=== PATIENT | female | born 1985 | race Hispanic/Latino ===

== ENCOUNTER 2018-04-11 00:59 | Emergency (ER) | payer SELFPAY ==
[2018-04-11] MEDS ORDERED: Zofran 4 MG/2 ML VIAL IV ONE (01:25)
[2018-04-11] MEDS ORDERED: Sodium Chloride 0.9% 1000 ML 1,000 ML IV STA (01:25)
[2018-04-11] MEDS ORDERED: TORAdol 30 mg Injection IV ONE (01:25)
--- NOTE | 2018-04-11 01:31 | ERPHSYRPT ---
- History of Present Illness Time Seen by Provider: 04/11/18 01:26 Historian: patient Exam Limitations: no limitations Physician History: This is a 33-year-old female arrives with complaint of pain in her left flank radiating to her left groin described as sharp severe intermittent symptoms going on since 10:00 yesterday morning she states she's been nauseous she denies any vomiting she states she has had some nausea he denies dysuria she does have pink urine patient states the pain is similar to kidney stones she has had in the past. Past medical history includes kidney stones Past surgical history is remarkable for appendectomy gallbladder. Social history patient denies alcohol or illicit drug or tobacco use. Timing/Duration: today Activities at Onset: none Quality: sharpness Abdominal Pain Onset Location: flank (left flank) Pain Radiation: groin (left groin) Severity of Pain-Max: moderate Severity of Pain-Current: moderate Modifying Factors: Improves With: nothing Associated Symptoms: back (left flank pain), nausea, No chest pain, No diaphoresis, No diarrhea, No fever/chills, No fatigue, No headache, No heartburn , No loss of appetite, No neck pain, No rash, No shortness of breath, No syncope , No vomiting, No weakness Previous symptoms: same symptoms as today (same symptoms with kidney stones in the past.) Allergies/Adverse Reactions: tramadol Allergy (Severe, Verified 04/11/18 01:15) - Review of Systems Constitutional: No Fever, No Chills Eyes: No Symptoms Ears, Nose, & Throat: No Symptoms Respiratory: No Cough, No Dyspnea Cardiac: No Chest Pain, No Edema, No Syncope Abdominal/Gastrointestinal: Nausea, No Abdominal Pain, No Vomiting, No Diarrhea , No Constipation, No Hematemesis, No Hematochezia, No Melena, No Dysphagia, No Appetite Changes Genitourinary Symptoms: Flank Pain (left flank pain), Other (patient with pink urine), No Dysuria, No Frequency, No Hematuria, No Hesitancy, No Incontinence, No Urgency, No Urinary Retention, No Menorrhagia, No , No Vaginal Bleeding, No Vaginal Discharge, No Vaginal Itching Musculoskeletal: No Back Pain (left flank pain), No Neck Pain, No Deformity, No Fall, No Injury, No Joint Redness, No Joint Swelling, No Myalgias Skin: No Rash Neurological: No Dizziness, No Focal Weakness, No Sensory Changes Psychological: No Symptoms Endocrine: No Symptoms All Other Systems: Reviewed and Negative - Past Medical History Pertinent Past Medical History: Yes History: Other (kidney stones) - Past Surgical History Past Surgical History: Yes Gastrointestinal: Appendectomy, Cholecystectomy - Nursing Vital Signs Nursing Vital Signs: Initial Vital Signs Temperature 98.3 F 04/11/18 01:00 Pulse Rate 99 H 04/11/18 01:00 Respiratory Rate 18 04/11/18 01:00 Blood Pressure 137/75 04/11/18 01:00 O2 Sat by Pulse Oximetry 96 04/11/18 01:00 Pain Scale Pain Intensity 10 - Physical Exam General Appearance: mild distress Eye Exam: PERRL/EOMI, eyes nml inspection, other (fundi are unremarkable) Ears, Nose, Throat Exam: normal ENT inspection, pharynx normal, moist mucous membranes Neck Exam: normal inspection, non-tender, supple, full range of motion Respiratory Exam: normal breath sounds, lungs clear, No respiratory distress Cardiovascular Exam: regular rate/rhythm, normal heart sounds, capillary refill <2 sec Gastrointestinal/Abdomen Exam: soft, No tenderness, No mass Back Exam: normal inspection, normal range of motion, No CVA tenderness, No vertebral tenderness Extremity Exam: normal inspection, normal range of motion, pelvis stable Neurologic Exam: alert, oriented x 3, cooperative, him analyst II-XII nml as tested, normal mood/affect, nml cerebellar function, sensation nml, No motor deficits Skin Exam: normal color, warm, dry SpO2 Interpretation: normal (96%) SpO2: 96 - Course Nursing assessment & vital signs reviewed: Yes - CT Exams Abdomen/Pelvis CT Interpretation: Tele-radiologist Report (CT abdomen and pelvis without contrast. Impression: No evidedence of acute intra-abdominal or pelvic pathology.) Ordered Tests: Active Orders 24 hr Category Date Time Status IV Insertion STAT Care 04/11/18 01:25 Active ABDOMEN AND PELVIS W/0 CONTRAS [CT] Stat Exams 04/11/18 02:19 Taken CBC W DIFF Stat Lab 04/11/18 02:25 Completed CMP Stat Lab 04/11/18 02:25 Completed CULTURE,URINE Stat Lab 04/11/18 01:45 Received HCG,QUALITATIVE URINE Stat Lab 04/11/18 01:45 Completed UA W/RFX UR CULTURE Stat Lab 04/11/18 01:45 Completed Medication Summary Discontinued Medications Generic Name Dose Route Start Last Admin Trade Name Ml PRN Reason Stop Dose Admin Sodium Chloride 1,000 mls @ 999 mls/hr 04/11/18 01:25 04/11/18 02:10 Sodium Chloride 0.9% 1000 Ml IV 04/11/18 02:25 Not Given .Q1H1M STA Sodium Chloride Confirm 04/11/18 01:42 Sodium Chloride 0.9% 1000 Ml Administered 04/11/18 01:43 Dose 1,000 mls @ ud .ROUTE .STK-MED ONE Ketorolac Tromethamine 30 mg 04/11/18 01:25 04/11/18 02:11 Toradol 30 Mg Injection IV 04/11/18 01:26 Not Given STAT ONE Ketorolac Tromethamine Confirm 04/11/18 01:42 Toradol 30 Mg Injection Administered 04/11/18 01:43 Dose 30 mg .ROUTE .STK-MED ONE Ketorolac Tromethamine 60 mg 04/11/18 02:07 04/11/18 02:11 Toradol 30 Mg Injection IM 04/11/18 02:08 60 mg STAT ONE Administration Ketorolac Tromethamine Confirm 04/11/18 02:08 Toradol 30 Mg Injection Administered 04/11/18 02:09 Dose 30 mg .ROUTE .STK-MED ONE Morphine Sulfate 4 mg 04/11/18 03:02 04/11/18 03:19 Morphine Sulfate 4 Mg Inj IV 04/11/18 03:03 Not Given STAT ONE Morphine Sulfate Confirm 04/11/18 03:05 Morphine Sulfate 4 Mg Inj Administered 04/11/18 03:06 Dose 4 mg .ROUTE .STK-MED ONE Morphine Sulfate 4 mg 04/11/18 03:18 04/11/18 03:08 Morphine Sulfate 4 Mg Inj IM 04/11/18 03:19 4 mg STAT ONE Administration Ondansetron HCl 4 mg 04/11/18 01:25 04/11/18 02:14 Zofran 4 Mg/2 Ml Vial IV 04/11/18 01:26 Not Given STAT ONE Ondansetron HCl Confirm 04/11/18 01:42 Zofran 4 Mg/2 Ml Vial Administered 04/11/18 01:43 Dose 4 mg .ROUTE .STK-MED ONE Ondansetron HCl 4 mg 04/11/18 02:17 04/11/18 02:18 Zofran Odt 4 Mg PO 04/11/18 02:18 4 mg STAT ONE Administration Ondansetron HCl Confirm 04/11/18 02:18 Zofran Odt 4 Mg Administered 04/11/18 02:19 Dose 4 mg .ROUTE .STK-MED ONE Lab/Rad Data: Laboratory Result Diagrams 04/11/18 02:25 04/11/18 02:25 Laboratory Results 04/11/18 04/11/18 04/11/18 Range/Units 02:25 02:25 01:45 WBC 4.5 (4.0-10.5) K/mm3 RBC 3.70 L (4.1-5.4) M/mm3 Hgb 10.0 L (12.0-16.0) gm/dl Hct 31.2 L (35-47) % MCV 84.3 (78-100) fl MCH 27.0 (26-32) pg MCHC 32.1 (32-36) g/dl RDW 14.3 H (11.5-14.0) % Plt Count 285 (150-450) K/mm3 MPV 10.1 H (6-9.5) fl Gran % 51.6 (36.0-66.0) % Eos # (Auto) 0.15 (0-0.5) Absolute Lymphs (auto) 1.64 (1.0-4.6) Absolute Monos (auto) 0.35 (0.0-1.3) Lymphocytes % 36.4 (24.0-44.0) % Monocytes % 7.8 (0.0-12.0) % Eosinophils % 3.3 (0.00-5.0) % Basophils % 0.9 (0.0-0.4) % Absolute Granulocytes 2.32 (1.4-6.9) Basophils # 0.04 (0-0.4) Sodium 140 (137-145) mmol/L Potassium 3.8 (3.5-5.1) mmol/L Chloride 107 (98-107) mmol/L Carbon Dioxide 26 (22-30) mmol/L Anion Gap 10.8 (5-15) MEQ/L BUN 14 (7-17) mg/dL Creatinine 0.62 (0.52-1.04) mg/dL Estimated GFR > 60.0 ML/MIN Glucose 94 (74-106) mg/dL Calcium 8.8 (8.4-10.2) mg/dL Total Bilirubin 0.50 (0.2-1.3) mg/dL AST 68 H (14-36) U/L ALT 79 H (0-35) U/L Alkaline Phosphatase 118 (38-126) U/L Serum Total Protein 7.3 (6.3-8.2) g/dL Albumin 4.0 (3.5-5.0) g/dL Urine Color (YELLOW) Urine Appearance (CLEAR) Urine pH (5-6) Ur Specific [place] (1.005-1.025) Urine Protein (Negative) Urine Ketones (NEGATIVE) Urine Blood (0-5) Amandeep/ul Urine Nitrite (NEGATIVE) Urine Bilirubin (NEGATIVE) Urine Urobilinogen (0-1) mg/dL Ur Leukocyte Esterase (NEGATIVE) Urine WBC (Auto) (0-5) /HPF Urine RBC (Auto) (0-2) /HPF U Epithel Cells (Auto) (FEW) /HPF Urine Bacteria (Auto) (NEGATIVE) /HPF Urine Culture Reflexed (NO) Urine Glucose (NEGATIVE) mg/dL Urine HCG, Qual NEGATIVE (Negative) 04/11/18 Range/Units 01:45 WBC (4.0-10.5) K/mm3 RBC (4.1-5.4) M/mm3 Hgb (12.0-16.0) gm/dl Hct (35-47) % MCV (78-100) fl MCH (26-32) pg MCHC (32-36) g/dl RDW (11.5-14.0) % Plt Count (150-450) K/mm3 MPV (6-9.5) fl Gran % (36.0-66.0) % Eos # (Auto) (0-0.5) Absolute Lymphs (auto) (1.0-4.6) Absolute Monos (auto) (0.0-1.3) Lymphocytes % (24.0-44.0) % Monocytes % (0.0-12.0) % Eosinophils % (0.00-5.0) % Basophils % (0.0-0.4) % Absolute Granulocytes (1.4-6.9) Basophils # (0-0.4) Sodium (137-145) mmol/L Potassium (3.5-5.1) mmol/L Chloride (98-107) mmol/L Carbon Dioxide (22-30) mmol/L Anion Gap (5-15) MEQ/L BUN (7-17) mg/dL Creatinine (0.52-1.04) mg/dL Estimated GFR ML/MIN Glucose (74-106) mg/dL Calcium (8.4-10.2) mg/dL Total Bilirubin (0.2-1.3) mg/dL AST (14-36) U/L ALT (0-35) U/L Alkaline Phosphatase (38-126) U/L Serum Total Protein (6.3-8.2) g/dL Albumin (3.5-5.0) g/dL Urine Color PINK (YELLOW) Urine Appearance CLEAR (CLEAR) Urine pH 9.0 (5-6) Ur Specific [place] 1.000 (1.005-1.025) Urine Protein 30 (Negative) Urine Ketones NEGATIVE (NEGATIVE) Urine Blood LARGE (0-5) Amandeep/ul Urine Nitrite NEGATIVE (NEGATIVE) Urine Bilirubin NEGATIVE (NEGATIVE) Urine Urobilinogen NEGATIVE (0-1) mg/dL Ur Leukocyte Esterase NEGATIVE (NEGATIVE) Urine WBC (Auto) NONE (0-5) /HPF Urine RBC (Auto) 3-5 (0-2) /HPF U Epithel Cells (Auto) NONE (FEW) /HPF Urine Bacteria (Auto) NONE (NEGATIVE) /HPF Urine Culture Reflexed YES (NO) Urine Glucose NEGATIVE (NEGATIVE) mg/dL Urine HCG, Qual (Negative) - Progress Progress: improved Progress Note: 04/11/18 03:30 Patient with the essentially normal chemistry with the exception of an AST of 68 and an ALT of 79, electrolytes BUN and creatinine are normal patient with the urine that is pink 3-5 red cells, specific gravity 1.000. Patient's CBC white blood cell 4.5 hemoglobin 10.0 hematocrit 31.[address] abdomen and pelvis without contrast no evidence of acute intra-abdominal or pelvic pathology. Patient with no improvement with Toradol. Improved after receiving morphine. IV fluids not given patient very difficult stick and she has normal renal functions and normal electrolytes and no evidence of kidney stone. Will give patient a small amount of Stuart for pain Zofran. She is to follow-up with her family doctor (list) . - Departure Time of Disposition: 03:33 Departure Disposition: Home Clinical Impression: Left flank pain Hematuria Qualifiers: Hematuria type: unspecified type Qualified Code(s): R31.9 - Hematuria, unspecified Condition: Fair Critical Care Time: No Referrals: DOCTOR,NO FAMILY [Primary Care Provider] - Instructions: Flank Pain Additional Instructions: Return home. Plenty of fluids. Stuart as prescribed. Follow-up with your family doctor (list). Return for acute distress or for severe symptoms. Prescriptions: Hydrocodone/APAP 5-325 Tab^^^ [Stuart 5-325 Tablet^^^] 1 tab PO Q4HPRN PRN #10 tablet MDD 6 PRN Reason: Pain
[2018-04-11] MEDS ORDERED: TORAdol 30 mg Injection ONE ×2 (01:42→02:08)
[2018-04-11] MEDS ORDERED: Zofran 4 MG/2 ML VIAL ONE (01:42)
[2018-04-11] MEDS ORDERED: Sodium Chloride 0.9% 1000 ML 0 ML ONE (01:42)
[2018-04-11] MEDS ORDERED: TORAdol 30 mg Injection IM ONE (02:07)
[2018-04-11 02:15] LABS: Appearance CLEAR (CLEAR); Bilirubin NEGATIVE (NEGATIVE); Blood LARGE Ery/ul (0-5); Glucose NEGATIVE (NEGATIVE); Ketones NEGATIVE (NEGATIVE); Leukocyte Esterase NEGATIVE (NEGATIVE); Nitrite NEGATIVE (NEGATIVE); Protein,Urine Dip 30 (Negative); Urobilinogen NEGATIVE mg/dL (0-1)
[2018-04-11] MEDS ORDERED: ZOFRAN ODT 4 MG PO ONE (02:17)
[2018-04-11] MEDS ORDERED: ZOFRAN ODT 4 MG ONE (02:18)
[2018-04-11 02:30] LABS: BASOPHIL % 0.9 % (0.0-0.4); Basophil (Absolute #) 0.04 (0-0.4); Eosinophil % 3.3 % (0.00-5.0); Eosinophil (Absolute #) 0.15 (0-0.5); Granulocyte Absolute (ANC) 2.32 (1.4-6.9); Granulocytes % 51.6 % (36.0-66.0); Hematocrit 31.2 % (35-47); Lymphocyte (Absolute #) 1.64 (1.0-4.6); Lymphocytes % 36.4 % (24.0-44.0); Mean Cell Volume 84.3 fl (78-100); Mean Corpuscular Hgb Concent. 32.1 g/dl (32-36); Mean Platelet Volume 10.1 fl (6-9.5); Monocyte (Absolute #) 0.35 (0.0-1.3); Monocytes % 7.8 % (0.0-12.0); Platelet Count 285 K/mm3 (150-450); Red Cell Distribution Width 14.3 % (11.5-14.0); White Blood Count 4.5 K/mm3 (4.0-10.5)
[2018-04-11 02:40] LABS: ALKALINE PHOSPHATASE 118 U/L (38-126); ANION GAP 10.8 MEQ/L (5-15); BLOOD UREA NITROGEN 14 mg/dL (7-17); CHLORIDE 107 mmol/L (98-107); Calcium 8.8 mg/dL (8.4-10.2); Carbon Dioxide 26 mmol/L (22-30); Creatinine 1 0.62 mg/dL (0.52-1.04); Glucose 94 mg/dL (74-106); Potassium 3.8 mmol/L (3.5-5.1); SGOT/AST 68 U/L (14-36); SGPT/ALT 79 U/L (0-35); SODIUM 140 mmol/L (137-145); Total Protein 7.3 g/dL (6.3-8.2)
[2018-04-11] MEDS ORDERED: MORPHINE SULFATE 4 MG INJ ONE (03:05)
[2018-04-11 03:08] VITALS: BP 126/67; PULSE 91
[2018-04-11] MEDS: MORPHINE SULFATE 4 MG INJ IV ONE ×2 (03:08→03:19)
[2018-04-11] MEDS ORDERED: MORPHINE SULFATE 4 MG INJ IM ONE (03:18)
[2018-04-11 03:28] VITALS: O2SAT 96
[2018-04-11] MEDS ORDERED: NORCO 5/325 MG PO ONE (03:38)
[2018-04-11] MEDS ORDERED: NORCO 5/325 MG ONE (03:42)
--- NOTE | 2018-04-11 08:42 | XRAY ---
Indication: Left flank/pelvic pain. Nausea and hematuria. History renal stones. Multiple contiguous axial images obtained through the abdomen and pelvis without contrast using renal stone protocol. Comparison: None Lung bases are clear. Heart is not enlarged. No renal calculus or evidence for obstructive uropathy in either system. 1.9 cm left ovary cyst. No free fluid/air. Noncontrasted stomach and bowel loops appear nonobstructed. Previous appendectomy and cholecystectomy. There is mild diffuse scattered colonic fecal debris throughout. Remaining liver, pancreas, spleen, adrenal glands, kidneys, ureters, bladder, uterus, and aorta appear unremarkable for noncontrast exam. Osseous structures intact. Impression: 1. Negative renal calculus or evidence for obstructive uropathy. 2. 1.9 cm left ovary cyst. 3. Fecal stasis without obstruction. 4. Remaining CT abdomen/pelvis without contrast exam is negative. Comment: Preliminary interpretation was made by [facility]. No critical discrepancy. CT DI 23.45
== END 2018-04-11 03:57 | disposition home or self-care (01) ==
LOC: ED 00:59
DX: R31.9 Hematuria, unspecified (principal); R10.9 Unspecified abdominal pain
CPT/HCPCS: 36415; 74176; 80053; 81001; 84703; 85025; 87086; 96372; 99284; J1885; J2270; J2405; Q0162; A9270-GY

== ENCOUNTER 2018-04-29 20:35 | Emergency (ER) | payer SELFPAY ==
[2018-04-29] MEDS ORDERED: TORAdol 30 mg Injection IM ONE (21:37)
[2018-04-29] MEDS ORDERED: TORAdol 30 mg Injection ONE (21:40)
--- NOTE | 2018-04-29 21:55 | ERPHSYRPT ---
- History of Present Illness Source: patient Exam Limitations: no limitations Patient Subjective Stated Complaint: pt is alert and oriented. pt ambulatory with a slight limp on the left side. pt comes in after twisting her ankle walking down stairs at 1700 today. pt pedal pulses present, cap refil <3 seconds , pt ROM limited, pain noted on the lateral aspect of ankle and foot. moderate swelling noted. no redness, or discoloration, or loss of sensation noted. scars from prior surgery also noted. Triage Nursing Assessment: see above Physician History: Pt is a 33 y/o female that presented to the ED with complains of L ankle pain. Pt was going down stairs, and she tripped and rolled her ankle. This ankle did have surgery in the past in [place], with screws and a plate. Pt denies F/C/S. No SOB or cough, no dysuria, no chest discomfort. She complains of pain in her ankle. Method of Injury: fell Occurred: this afternoon Quality: constant, throbbing, tightness Severity of Pain-Max: moderate Severity of Pain-Current: moderate Lower Extremities Pain: ankle: left Modifying Factors: Improves With: cold therapy, pain medication Associated Symptoms: none Allergies/Adverse Reactions: tramadol Allergy (Severe, Verified 04/11/18 01:15) Hx Tetanus, Diphtheria Vaccination/Date Given: No Hx Influenza Vaccination/Date Given: No Hx Pneumococcal Vaccination/Date Given: Yes Immunizations Up to Date: Yes - Review of Systems Constitutional: No Fever, No Chills Eyes: No Symptoms Ears, Nose, & Throat: No Symptoms Respiratory: No Cough, No Dyspnea Cardiac: No Chest Pain, No Edema, No Syncope Abdominal/Gastrointestinal: No Abdominal Pain, No Nausea, No Vomiting, No Diarrhea Genitourinary Symptoms: No Dysuria Musculoskeletal: Arthralgias, Joint Pain (Echimosis), Joint Swelling Neurological: No Dizziness, No Focal Weakness, No Sensory Changes - Past Medical History Pertinent Past Medical History: Yes Neurological History: No Pertinent History ENT History: No Pertinent History Cardiac History: No Pertinent History Respiratory History: No Pertinent History Endocrine Medical History: No Pertinent History Musculoskeletal History: No Pertinent History GI Medical History: No Pertinent History History: No Pertinent History Psycho-Social History: No Pertinent History Female Reproductive Disorders: No Pertinent History - Past Surgical History Past Surgical History: Yes Neuro Surgical History: No Pertinent History Cardiac: No Pertinent History Respiratory: No Pertinent History Gastrointestinal: Appendectomy, Cholecystectomy Genitourinary: No Pertinent History Musculoskeletal: Orthopedic Surgery Female Surgical History: No Pertinent History Other Surgical History: Pt had some lymph nodes removed from lower abd in 2017 to test for CA, results came back thadnin, left ankle surgery after dislocation Oct 2017 - Social History Smoking Status: Never smoker Exposure to second hand smoke: No Drug Use: none - Female History Hx Now: No - Nursing Vital Signs Nursing Vital Signs: Initial Vital Signs Temperature 98.9 F 04/29/18 20:42 Pulse Rate 111 H 04/29/18 20:42 Respiratory Rate 16 04/29/18 20:42 Blood Pressure 140/72 04/29/18 20:42 O2 Sat by Pulse Oximetry 98 04/29/18 20:42 Pain Scale Pain Intensity 8 - Physical Exam General Appearance: moderate distress, alert Eyes, Ears, Nose, Throat Exam: moist mucous membranes Neck Exam: non-tender, supple Ankle Exam: left ankle: deformity, ecchymosis, limited range of motion, pain, soft tissue tenderness, swelling Neuro/Tendon Exam: normal sensation, normal motor functions SpO2: 98 - Course Nursing assessment & vital signs reviewed: Yes - Radiology Exams Left Ankle X-ray Interpretation: Teleradiologist Report (Hardware fx. No bony fracture) Ordered Tests: Active Orders 24 hr Category Date Time Status Cold Application STAT Care 04/29/18 20:44 Active ANKLE (3 VIEWS) Stat Exams 04/29/18 21:00 Taken Medication Summary Discontinued Medications Generic Name Dose Route Start Last Admin Trade Name Hersonq PRN Reason Stop Dose Admin Ketorolac Tromethamine 60 mg 04/29/18 21:37 04/29/18 21:44 Toradol 30 Mg Injection IM 04/29/18 21:38 60 mg STAT ONE Administration Ketorolac Tromethamine Confirm 04/29/18 21:40 Toradol 30 Mg Injection Administered 04/29/18 21:41 Dose 60 mg .ROUTE .STK-MED ONE - Progress Progress: unchanged Progress Note: 04/29/18 21:55 Pt was given Toradol IM for pain. XR of l ankle were done, that showed fx of the hardware of the L ankle. Pt did have her surgery in [place]. Ortho was consulted in [facility]. XRs were sent to the surgeon, that directed us to transfer pt to [facility] ER PRAT[facility]. Keep pt NPO for surgery. Will see patient in: other (Transfer to regional ED) - Departure Time of Disposition: 21:57 Departure Disposition: Transfer Clinical Impression: Left ankle injury Condition: Stable Critical Care Time: No Referrals: DOCTOR,NO FAMILY [Primary Care Provider] - Additional Instructions: Pt to be transferred to regional ER, and Ortho to be contacted for surgery.
[2018-04-29 22:20] VITALS: BP 142/71; PULSE 104; O2SAT 99
[2018-04-29] MEDS ORDERED: MORPHINE SULFATE 2 MG INJ IM ONE (22:26)
--- NOTE | 2018-04-30 09:10 | XRAY ---
Indication: Pain following twisting injury. Comparison: None 3 views of the left ankle demonstrates widening of the lateral talotibial articulation with soft tissue swelling concerning for ligamentous tears. Medial talonavicular fixation plate/screws with talus screws fractured. Tiny cuboid accessory ossicle. No other bony, articular, or soft tissue abnormalities.
== END 2018-04-29 22:49 | disposition short-term general hospital (02) ==
LOC: ED 20:35
DX: S99.912A Unspecified injury of left ankle, initial encounter (principal); W50.2XXA Accidental twist by another person, initial encounter; Y93.01 Activity, walking, marching and hiking; M25.572 Pain in left ankle and joints of left foot
CPT/HCPCS: 73610; 96372; 99284; J1885

== ENCOUNTER 2018-11-07 20:40 | Emergency (ER) | payer SELFPAY ==
[2018-11-07] MEDS ORDERED: NORCO 5/325 MG PO ONE ×2 (22:23→23:08)
[2018-11-07] MEDS ORDERED: NORCO 5/325 MG ONE ×2 (22:28→23:11)
--- NOTE | 2018-11-07 23:06 | ERPHSYRPT ---
- History of Present Illness Time Seen by Provider: 11/07/18 21:45 Source: patient Exam Limitations: no limitations Patient Subjective Stated Complaint: pt states she stepped in a hole and hurt her lt ankle. Triage Nursing Assessment: pt alert and oreinted, answers questions approp. pt ambulatory with limping gait noted. respirations nonlabored with lungs cta. swelling noted to lt ankle. pedal pulse and cap refill wnl. Physician History: 33 y/o female presents with left ankle pain and swelling. occurred earlier today. pt has had surgery in left ankle in past and has broken hardware in place. Method of Injury: twisted ( pt stepped in a hole and twisted) Occurred: this evening Quality: aching, throbbing Severity of Pain-Max: moderate Severity of Pain-Current: moderate Lower Extremities Pain: ankle: left Modifying Factors: Improves With: movement Associated Symptoms: other (hurts to bear weight) Allergies/Adverse Reactions: tramadol Allergy (Severe, Verified 11/07/18 21:12) Hx Tetanus, Diphtheria Vaccination/Date Given: Yes Hx Influenza Vaccination/Date Given: No Hx Pneumococcal Vaccination/Date Given: No Immunizations Up to Date: Yes - Review of Systems Constitutional: No Symptoms Eyes: No Symptoms Ears, Nose, & Throat: No Symptoms Respiratory: No Symptoms Cardiac: No Symptoms Abdominal/Gastrointestinal: No Symptoms Genitourinary Symptoms: No Symptoms Musculoskeletal: Injury, Joint Pain (left ankle) Skin: No Symptoms Neurological: No Symptoms Psychological: No Symptoms Endocrine: No Symptoms Hematologic/Lymphatic: No Symptoms Immunological/Allergic: No Symptoms All Other Systems: Reviewed and Negative - Past Medical History Pertinent Past Medical History: Yes Neurological History: No Pertinent History ENT History: No Pertinent History Cardiac History: No Pertinent History Respiratory History: No Pertinent History Endocrine Medical History: No Pertinent History Musculoskeletal History: No Pertinent History GI Medical History: No Pertinent History History: No Pertinent History Psycho-Social History: No Pertinent History Female Reproductive Disorders: No Pertinent History - Past Surgical History Past Surgical History: Yes Neuro Surgical History: No Pertinent History Cardiac: No Pertinent History Respiratory: No Pertinent History Gastrointestinal: Appendectomy, Cholecystectomy Genitourinary: No Pertinent History Musculoskeletal: Orthopedic Surgery Female Surgical History: No Pertinent History Other Surgical History: Pt had some lymph nodes removed from lower abd in 2017 to test for CA, results came back maritza, left ankle surgery after dislocation Oct 2017 - Social History Smoking Status: Never smoker Exposure to second hand smoke: No Drug Use: none Patient Lives Alone: No - Female History Hx Last Menstrual Period: 4 days Hx Now: No - Nursing Vital Signs Nursing Vital Signs: Initial Vital Signs Temperature 99.4 F 11/07/18 20:59 Pulse Rate 96 H 11/07/18 20:59 Respiratory Rate 16 11/07/18 20:59 Blood Pressure 118/58 11/07/18 20:59 Pain Scale Pain Intensity 7 - Physical Exam General Appearance: mild distress, alert, anxiety Eyes, Ears, Nose, Throat Exam: normal ENT inspection, moist mucous membranes Neck Exam: normal inspection, non-tender, supple, full range of motion Cardiovascular/Respiratory Exam: chest non-tender, no respiratory distress Gastrointestinal/Abdominal Exam: non-tender Back Exam: normal inspection, normal range of motion, No CVA tenderness, No vertebral tenderness Hips Exam: bilateral: non-tender, normal inspection, normal range of motion, no evidence of injury Legs Exam: bilateral leg: non-tender, normal inspection, normal range of motion , no evidence of injury Knees Exam: bilateral knee: non-tender, normal inspection, normal range of motion, no evidence of injury Ankle Exam: right ankle: non-tender, normal inspection, normal range of motion, no evidence of injury, left ankle: limited range of motion, pain, soft tissue tenderness, swelling Foot Exam: bilateral foot: non-tender, normal inspection, normal range of motion , no evidence of injury Neuro/Tendon Exam: normal sensation, normal motor functions, normal tendon functions Mental Status Exam: alert, oriented x 3, cooperative Skin Exam: normal color, warm, dry SpO2 Interpretation: normal SpO2: 100 O2 Delivery: Room Air - Course Nursing assessment & vital signs reviewed: Yes Ordered Tests: Active Orders 24 hr Category Date Time Status ANKLE (3 VIEWS) Stat Exams 11/07/18 21:08 Taken Medication Summary Discontinued Medications Generic Name Dose Route Start Last Admin Trade Name Ml PRN Reason Stop Dose Admin Hydrocodone Bitart/Acetaminophen 1 tab 11/07/18 22:23 11/07/18 22:29 [place] 5/325 Mg PO 11/07/18 22:24 1 tab STAT ONE Administration Hydrocodone Bitart/Acetaminophen Confirm 11/07/18 22:28 [place] 5/325 Mg Administered 11/07/18 22:29 Dose 1 tab .ROUTE .STK-MED ONE - Progress Progress: improved Progress Note: 11/07/18 23:05 xray left ankle-no acute fx or dislocation Counseled pt/family regarding: diagnosis, need for follow-up, rad results - Departure Departure Disposition: Home Clinical Impression: Moderate left ankle sprain Condition: Stable Critical Care Time: No Referrals: DOCTOR,NO FAMILY [Primary Care Provider] - Additional Instructions: ice pack to area 3 times daily for 3 days. use tylenol and ibuprofen for pain. follow up with primary doctor for pain management and further management
[2018-11-07 23:35] VITALS: BP 113/65; PULSE 85; O2SAT 99
--- NOTE | 2018-11-08 23:04 | XRAY ---
Exam: 3 views of the left ankle from 11/07/2018. Comparison: 3 views of left ankle from 04/29/2018. Indication: Rolled left ankle, left ankle pain and proximal foot pain, had surgery on left foot 1 year ago. Findings: AP, oblique, and lateral radiographs of the left ankle were obtained. There is a high plantar arch. There is a metallic plate with 4 adjoining screws traversing the talonavicular joint. There are 2 proximal threaded screws extending into the talus and 2 distal threaded screws extending into the navicular bone. The more proximal talus screws are again noted to be broken. This is unchanged from 04/29/2018. There is stable mild soft tissue thickening/swelling overlying the medial aspect of the left ankle. I see no acute fracture or dislocation. There is significant nonuniformity of the left ankle mortise representing no change from 04/29/2018. The medial aspect of the ankle mortise measures about 2 mm in height and the lateral aspect of the left ankle mortise measures about 7 mm in height. Consider lateral ligamentous injury. The subtalar joint appears unremarkable. Impression: 1. Stable postoperative changes of arthrodesis involving the talonavicular joint of the left hindfoot. The 2 threaded screws fixing the proximal portion of the plate to the talus are again noted to be broken representing no change in 04/29/2018. The remainder of the orthopedic hardware is unchanged. 2. No acute fracture or dislocation of the left ankle is seen. 3. There is significant nonuniformity of the left ankle mortise, as discussed above. Consider lateral ligamentous injury. This is stable. 4. Stable mild soft tissue thickening/swelling overlying the medial aspect of the left ankle.
== END 2018-11-07 23:30 | disposition home or self-care (01) ==
LOC: ED 20:40
DX: S93.402A Sprain of unspecified ligament of left ankle, initial encounter (principal); X50.1XXA Overexertion from prolonged static or awkward postures, initial encounter; Y93.89 Activity, other specified
CPT/HCPCS: 73610; 99283; A9270-GY